=== PATIENT | male | born 1965 | race African-American/Black ===

== ENCOUNTER 2021-09-08 05:33 | Emergency (ER) | payer OTHER, SELFPAY ==
--- NOTE | ~2021-09-08 | XR_ITS ---
EXAMINATION: XR tibia fibula LT 2V DATE: 09/08/2021 07:02 INDICATION: Left lower leg injury. TECHNIQUE: 2 views of left tibia and fibula on 4 radiographs were obtained. COMPARISON: None. FINDINGS: Bone alignment is normal. No fracture. There is mild osteoarthritis of patellofemoral erik rtment of the knee. IMPRESSION: 1. No fracture. Reviewed, dictated and finalized at location A. IMPRESSION: 1. No fracture.
--- NOTE | ~2021-09-08 | XR_ITS ---
EXAMINATION: XR tibia fibula RT 2V DATE: 09/08/2021 07:02 INDICATION: Right lower leg injury. TECHNIQUE: 2 views of right tibia and fibula on 4 radiographs were obtained. COMPARISON: None. FINDINGS: Bone alignment is normal. There is a nondisplaced oblique fracture of proximal diaphysis of fibula. There is mild osteoarthritis of patellofemoral compartment of the knee. No knee joint effusi on. There is a bandage of the distal lower leg. IMPRESSION: 1. Nondisplaced oblique fracture of proximal diaphysis of right fibula. Reviewed, dictated and finalized at location A.
[2021-09-08 05:52] VITALS: BP 146/76; PULSE 88; RESP 18; TEMP 36.7; O2SAT 99
[2021-09-08 07:03] VITALS: BP 146/106; PULSE 89; RESP 18; O2SAT 99
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
[2021-09-08] MEDS: TETANUS,DIPHTHERIA,AC PERTUSSIS ADULT (0.5 ML) BOOSTRIX IM (07:52)
[2021-09-08] MEDS: LIDO 1%/EPINEPHRINE 1:100,000 20 ML VIAL (08:11)
[2021-09-08] MEDS: IBUPROFEN 600 MG TABLET PO (08:18)
[2021-09-08] MEDS: ACETAMINOPHEN 325 MG TABLET 650 MG PO (08:18)
[2021-09-08 09:14] VITALS: BP 130/85; PULSE 75; RESP 17; O2SAT 99
== END 2021-09-08 09:10 | disposition home or self-care (01) ==
PROVIDERS: Emergency Provider Emergency Medicine; PCP Family Medicine
DX: S89.291A Other physeal fracture of upper end of right fibula, initial encounter for closed fracture (principal); S81.811A Laceration without foreign body, right lower leg, initial encounter; Y04.2XXA Assault by strike against or bumped into by another person, initial encounter; Z23 Encounter for immunization
CPT/HCPCS: 12001; 29515; 73590; 90471; 90715; 99284; A9270